=== PATIENT | female | born 1945 | race Hispanic/Latino ===

== ENCOUNTER 2020-03-03 13:12 | Observation (INO) | payer MEDICARE, MEDICAID ==
[2020-03-03] VITALS (8 sets, daily range): BP systolic 86–132; BP diastolic 43–65
[~2020-03-03] VITALS: Ht 149.9 cm; Wt 62.8 kg
[2020-03-03 14:43] LABS: IMMATURE GRANULOCYTES 0.6 % (0.0-5.0); MEAN CORPUSCULAR HGB 26.2 pG CALC (26.0-32.0); MEAN CORPUSCULAR HGB CONC 31.6 g/dL CAL (32.0-36.0); NEUT# 15.26 thou/uL (2.00-7.15); RED BLOOD COUNT 4.58 mill/uL (4.20-5.60); RED CELL DISTRI WIDTH 15.9 % (11.5-15.5)
[2020-03-03 14:56] LABS: ALBUMIN 3.4 g/dL (3.2-5.0); ALKALINE PHOSPHATASE 60 u/l (38-126); BILIRUBIN, TOTAL 0.5 mg/dL (0.0-1.4); BUN 21 mg/dL (8-23); BUN/CREATININE RATIO 20 (12-20 (CALC)); CHLORIDE 110 mmol/l (95-108); GFR 55 ML/MIN (>=60 (CALC)); GFR FOR AFR.AMER. > 60 ML/MIN (>=60 (CALC)); LIPASE 88 u/l (23-300); SGOT/AST 32 u/l (9-36); SODIUM 138 mmol/l (137-146); TOTAL PROTEIN 6.4 g/dL (6.3-8.2)
[2020-03-03 14:57] LABS: ANION GAP 15 (6-22 (CALC)); CARBON DIOXIDE 16 mmol/l (22-30); POTASSIUM 3.2 mmol/l (3.5-5.1)
[2020-03-03 14:59] LABS: INTERNATIONAL NORMALIZED RATIO 1.1 RATIO (0.7-1.3); PROTHROMBIN TIME 11.8 SECONDS (9.0-12.5)
[2020-03-03] MEDS ORDERED: METFORMIN HCL500 M1 PO (16:21)
[2020-03-03] MEDS ORDERED: MELOXICAM7.5 MG PO (16:21)
[2020-03-03] MEDS ORDERED: VITAMIN D-32000 UNIT PO (16:22)
[2020-03-03] MEDS ORDERED: INVOKANA300 MG PO (16:22)
[2020-03-03] MEDS ORDERED: ASPIRIN81 MG PO (16:23)
[2020-03-03 18:22] LABS: URINE BILIRUBIN - DIPSTICK NEGATIVE (NEGATIVE); URINE BLOOD DIPSTICK NEGATIVE (NEGATIVE); URINE COLOR YELLOW; URINE GLUCOSE - DIPSTICK >=1000 mg/dL (NEGATIVE); URINE KETONE NEGATIVE (NEGATIVE); URINE LEUK ESTERASE NEGATIVE (NEGATIVE); URINE NITRITE - DIPSTICK NEGATIVE (Negative); URINE PH 5.5 (4.5-8.0); URINE PROTEIN - DIPSTICK NEGATIVE (NEG-TRACE); URINE UROBILINOGEN - DIPSTICK 0.2 E.U./dL (0.2)
[2020-03-04] VITALS (38 sets, daily range): BP systolic 72–154; BP diastolic 43–76
[2020-03-04 09:58] LABS: MEAN CORPUSCULAR HGB 26.7 pG CALC (26.0-32.0); MEAN CORPUSCULAR HGB CONC 31.8 g/dL CAL (32.0-36.0); RED BLOOD COUNT 3.74 mill/uL (4.20-5.60); RED CELL DISTRI WIDTH 16.4 % (11.5-15.5)
[2020-03-04 10:11] LABS: HEMATOCRIT 31.4 % (37.0-47.0)
[2020-03-04 10:23] LABS: BUN 17 mg/dL (8-23); BUN/CREATININE RATIO 30 (12-20 (CALC)); CARBON DIOXIDE 15 mmol/l (22-30); CHLORIDE 111 mmol/l (95-108); CREATININE 0.6 mg/dL (0.5-1.0); GFR > 60 ML/MIN (>=60 (CALC)); GFR FOR AFR.AMER. > 60 ML/MIN (>=60 (CALC)); MAGNESIUM 1.5 mg/dL (1.6-2.3); SODIUM 138 mmol/l (137-146)
[2020-03-04 10:24] LABS: ANION GAP 16 (6-22 (CALC)); POTASSIUM 3.9 mmol/l (3.5-5.1)
[2020-03-04 10:39] LABS: C-REACTIVE PROTEIN 20.4 mg/dL (0-0.9)
[2020-03-05 02:00] VITALS: BP 91/57
[2020-03-05 04:00] VITALS: BP 96/58
[2020-03-05 06:00] VITALS: BP 90/58
[2020-03-05 06:19] LABS: HEMOGLOBIN 9.7 g/dl (12.0-16.0); MEAN CORPUSCULAR HGB 26.3 pG CALC (26.0-32.0); MEAN CORPUSCULAR HGB CONC 31.3 g/dL CAL (32.0-36.0); RED BLOOD COUNT 3.69 mill/uL (4.20-5.60); RED CELL DISTRI WIDTH 16.8 % (11.5-15.5)
[2020-03-05 06:41] LABS: ANION GAP 11 (6-22 (CALC)); BUN 16 mg/dL (8-23); BUN/CREATININE RATIO 29 (12-20 (CALC)); CARBON DIOXIDE 18 mmol/l (22-30); CHLORIDE 113 mmol/l (95-108); CREATININE 0.6 mg/dL (0.5-1.0); GFR > 60 ML/MIN (>=60 (CALC)); GFR FOR AFR.AMER. > 60 ML/MIN (>=60 (CALC)); POTASSIUM 4.6 mmol/l (3.5-5.1); SODIUM 137 mmol/l (137-146)
[2020-03-05 08:00] VITALS: BP 105/62
[2020-03-05] MEDS ORDERED: BENADRYL 25MG C25 MG PO (08:59)
[2020-03-05] MEDS ORDERED: MEDDOSEPAK PO (08:59)
[2020-03-05] MEDS ORDERED: EPIPEN 2-P0.3 MG/0.3 IM (08:59)
[2020-03-05 12:00] VITALS: BP 105/69
== END 2020-03-05 12:45 | disposition home or self-care (01) ==
LOC: ED 13:12 → ED-I 13:56 → ED 13:56 → ED-I 15:10 → ED 15:37 → ED-I 15:38 → ICU 15:38
PROVIDERS: Family Medicine; ADMIT Internal Medicine; ATTEND Internal Medicine
PROC: 02HV33Z Insertion of Infusion Device into Superior Vena Cava, Percutaneous Approach (ICD-10-PCS; principal; 2020-03-03)
DX: T63.91XA Toxic effect of contact with unspecified venomous animal, accidental (unintentional), initial encounter (principal); T78.2XXA Anaphylactic shock, unspecified, initial encounter; I95.9 Hypotension, unspecified; E11.9 Type 2 diabetes mellitus without complications; M06.9 Rheumatoid arthritis, unspecified; Z79.84 Long term (current) use of oral hypoglycemic drugs; Z11.59 Encounter for screening for other viral diseases
CPT/HCPCS: J1650; J3475

== ENCOUNTER 2020-09-01 10:13 | Emergency (ER) | payer MEDICARE, MEDICAID ==
[~2020-09-01] VITALS: Ht 149.9 cm; Wt 72.7 kg
[~2020-09-01 10:13] MED LIST: ASPIRIN81 MG PO; BENADRYL 25MG C25 MG PO; EPIPEN 2-P0.3 MG/0.3 IM; INVOKANA300 MG PO; MEDDOSEPAK PO; MELOXICAM7.5 MG PO; METFORMIN HCL500 M1 PO; VITAMIN D-32000 UNIT PO
[2020-09-01 12:40] LABS: HEMATOCRIT 36.3 % (37.0-47.0); HEMOGLOBIN 11.4 g/dl (12.0-16.0); IMMATURE GRANULOCYTES 1.5 % (0.0-5.0); MEAN CORPUSCULAR HGB 27.9 pG CALC (26.0-32.0); MEAN CORPUSCULAR HGB CONC 31.4 g/dL CAL (32.0-36.0); NEUT# 15.77 thou/uL (2.00-7.15); RED BLOOD COUNT 4.08 mill/uL (4.20-5.60); RED CELL DISTRI WIDTH 14.2 % (11.5-15.5)
[2020-09-01 12:48] LABS: BUN 25 mg/dL (8-23); BUN/CREATININE RATIO 34 (12-20 (CALC)); CARBON DIOXIDE 16 mmol/l (22-30); CHLORIDE 109 mmol/l (95-108); CREATININE 0.7 mg/dL (0.5-1.0); GFR > 60 ML/MIN (>=60 (CALC)); GFR FOR AFR.AMER. > 60 ML/MIN (>=60 (CALC)); SODIUM 139 mmol/l (137-146)
[2020-09-01 12:50] LABS: ANION GAP 19 (6-22 (CALC)); POTASSIUM 4.8 mmol/l (3.5-5.1)
[2020-09-01 18:11] VITALS: BP 105/60
== END 2020-09-01 18:20 | disposition short-term general hospital (02) ==
LOC: ED 10:13
PROVIDERS: Family Medicine
DX: S42.292A Other displaced fracture of upper end of left humerus, initial encounter for closed fracture (principal); S42.132A Displaced fracture of coracoid process, left shoulder, initial encounter for closed fracture; S32.591A Other specified fracture of right pubis, initial encounter for closed fracture; S32.592A Other specified fracture of left pubis, initial encounter for closed fracture; W11.XXXA Fall on and from ladder, initial encounter; E11.9 Type 2 diabetes mellitus without complications; Y92.009 Unspecified place in unspecified non-institutional (private) residence as the place of occurrence of the external cause; Z79.84 Long term (current) use of oral hypoglycemic drugs

== ENCOUNTER 2023-11-08 19:53 | Emergency (ER) | payer MEDICARE, MEDICAID ==
[~2023-11-08] VITALS: Ht 149.9 cm; Wt 77.1 kg
[2023-11-08] MEDS ORDERED: FOLIC ACID1 MG PO (20:51)
[2023-11-08] MEDS ORDERED: NEURONTIN PO (20:52)
[2023-11-08] MEDS ORDERED: ATORVASTATIN CA20 MG PO (20:52)
[2023-11-08] MEDS ORDERED: FARXIGA10 MG PO (20:53)
[2023-11-08] MEDS ORDERED: OMEPRAZOLE DR40 MG PO (20:54)
[2023-11-08] MEDS ORDERED: ASPIRINCHW 81MG PO (20:54)
[2023-11-08] MEDS ORDERED: methylPREDNISolone SODIUM SUCC 125 MG/2 ML SDV IV ONE (21:00)
[2023-11-08] MEDS ORDERED: IPRATROPIUM-Albuterol 0.5MG-2.5MG/3 ML NEB ONE ×2 (21:00→21:40)
[2023-11-08] MEDS ORDERED: SODIUM CHLORIDE 0.9% 1,000 ML BAG IV ONE (21:00)
[2023-11-08 21:11] LABS: EOS% 0.9 % (0-8); HEMATOCRIT 34.4 % (37.0-47.0); HEMOGLOBIN 10.3 g/dl (12.0-16.0); IMMATURE GRANULOCYTES 0.8 % (0.0-5.0); MEAN CELL VOLUME 79.1 fL CALC (80.0-100.0); MEAN CORPUSCULAR HGB 23.7 pG CALC (26.0-32.0); MEAN CORPUSCULAR HGB CONC 29.9 g/dL CAL (32.0-36.0); MONO% 3.2 % (2-13); NEUT# 8.94 thou/uL (2.00-7.15); NEUT% 92.1 % (42-76); RED BLOOD COUNT 4.35 mill/uL (4.20-5.60); RED CELL DISTRI WIDTH 16.4 % (11.5-15.5)
[2023-11-08 21:27] LABS: ALKALINE PHOSPHATASE 63 u/l (38-126); BILIRUBIN, TOTAL 0.6 mg/dL (0.02-1.3); BUN 22 mg/dL (8-23); BUN/CREATININE RATIO 31 (12-20 (CALC)); CHLORIDE 109 mmol/l (95-108); CREATININE 0.7 mg/dL (0.5-1.0); GFR FOR AFR.AMER. > 60 ML/MIN (>=60 (CALC)); GFR OTHER RACES > 60 ML/MIN (>=60 (CALC)); SGOT/AST 54 u/l (9-36); SODIUM 140 mmol/l (137-146); TOTAL PROTEIN 7.4 g/dL (6.3-8.2)
[2023-11-08 21:30] LABS: ANION GAP 14 (6-22 (CALC)); CARBON DIOXIDE 21 mmol/l (22-30); POTASSIUM 3.6 mmol/l (3.5-5.1)
[2023-11-08 21:39] LABS: INTERNATIONAL NORMALIZED RATIO 1.1 RATIO (0.7-1.3); PROTHROMBIN TIME 10.5 SECONDS (9.0-12.5)
[2023-11-08 21:40] LABS: D-DIMER 18.14 mg/L (0.19-0.60)
[2023-11-09] MEDS ORDERED: AZITHROMYCIN 500 MG in SODIUM CHLORIDE 0.9% 250 ML IV ONE (00:35)
[2023-11-09] MEDS ORDERED: AMOX/K CLAV875 M1 PO (04:13)
[2023-11-09] MEDS ORDERED: MEDROL4 M1 PO (04:13)
[2023-11-09] MEDS ORDERED: METFORMIN HYDR850 MG PO (04:35)
[2023-11-09 05:32] VITALS: BP 96/52
== END 2023-11-09 05:45 | disposition home or self-care (01) ==
LOC: ED 19:53
PROVIDERS: Family Medicine
DX: J32.9 Chronic sinusitis, unspecified (principal); D64.9 Anemia, unspecified; E11.9 Type 2 diabetes mellitus without complications; Z20.822 Contact with and (suspected) exposure to COVID-19; Z79.84 Long term (current) use of oral hypoglycemic drugs
CPT/HCPCS: Q9967